=== PATIENT | female | born 1965 | race Caucasian/White ===

== ENCOUNTER → 2024-09-21 07:22 | Outpatient (CLI) | payer OTHER, SELFPAY ==
--- NOTE | 2024-09-21 07:29 | DI.RAD.S_ITS ---
PROCEDURE: XR CERVICAL SPINE 4V OR 5V INDICATIONS: NECK PAIN TECHNIQUE: Five views of the cervical spine acquired. COMPARISON: None. FINDINGS: Bones: No acute fractures or dislocations to the T1 level. Straightening of the normal cervical lordosis. Grade 1 retrolisthesis of C5 on C6. Multilevel disc space narrowing and degenerative endplate changes. Multilevel uncovertebral joint and facet hypertrophy. Oblique views demonstrate mild neural foraminal narrowing most notably at the C5-6 level bilaterally. Soft tissues: No prevertebral soft tissue swelling. IMPRESSION: Moderate multilevel cervical spondylosis. No acute osseous abnormality. Approved by: Gerald Pacheco M.D. on 09/21/2024 at 8:33
== END ==
PROVIDERS: PCP Nurse Practitioner; Referring Provider Nurse Practitioner; Visit Provider Physical Medicine & Rehabilitation
DX: M47.812 Spondylosis without myelopathy or radiculopathy, cervical region (principal); M54.2 Cervicalgia
CPT/HCPCS: 72050; 99214